=== PATIENT | female | born 1970 | race Two or more races ===

== ENCOUNTER → 2024-09-27 | Outpatient (CLI) | payer BC, SELFPAY ==
[2024-09-27 09:13] LABS: Collection Type, Urine Clean Catch
[2024-09-27 09:42] LABS: Basophils # (Auto) 0.1 Thou/mm3 (0.0-0.2); Basophils % (Auto) 1 % (0-2.5); Eosinophils # (Auto) 0.5 Thou/mm3 (0.0-0.5); Eosinophils % (Auto) 8 % (0-10); Hematocrit 39.7 % (36.0-46.0); Hemoglobin 13.7 g/dL (12.0-16.0); Immature Granulocytes % (Auto) 0 % (0-0); Immature Granulocytes Auto 0.02 Thou/mm3 (0.00-0.00); Lymphocytes # (Auto) 2.3 Thou/mm3 (1.0-4.8); Lymphocytes % (Auto) 37 % (10-50); Mean Corpuscular HGB Conc 34.5 g/dl (31.0-37.0); Mean Corpuscular Hemoglobin 30.5 pg (25.0-35.0); Mean Corpuscular Volume 88 fL (80-100); Monocytes # (Auto) 0.5 Thou/mm3 (0.0-0.8); Monocytes % (Auto) 8 % (0-12); Neutrophils # (Auto) 2.8 Thou/mm3 (1.8-7.7); Neutrophils % (Auto) 46 % (37-80); Nucleated Red Blood Cell % 0 /100 WBC (0); Platelet Count 344 Thou/mm3 (140-440); RDW Standard Deviation 39.3 fL (36.4-46.3); Red Blood Count 4.49 Miln/mm3 (4.00-5.20); White Blood Count 6.2 Thou/mm3 (3.6-11.0)
[2024-09-27 09:43] LABS: Bilirubin,Urine Negative (Negative); Blood,Urine Negative (Negative); Clarity,Urine Clear (Clear/Hazy); Color,Urine Yellow (Lt Yel-Yel); Culture Indicated,Urine Not Indicated; Glucose, Urine Negative (Negative); Hyaline Casts,Urine < 1 /hpf (0-1); Ketones,Urine Negative (Negative); Leukocyte Esterase,Urine Negative (Negative); Nitrite,Urine Negative (Negative); Protein,Urine Trace (Neg - Trace); RBC,Urine 2 /hpf (0-3); Squamous Epithelial Cell,Urine 1 /hpf (0-5); Urobilinogen,Urine Negative mg/dL (0.0-1.0); WBC,Urine 1 /hpf (0-5)
[2024-09-27 09:51] LABS: Glucose Estimated Average 114 mg/dL (80-131); Hemoglobin A1C 5.6 % Hgb (4.8-6.0)
[2024-09-27 10:03] LABS: Total Iron Binding Capacity 339 mcg/dL (250-425)
[2024-09-27 10:09] LABS: Alanine Aminotransferase 24 U/L (10-49); Albumin, Serum 4.8 gm/dL (3.5-5.0); Albumin/Globulin Ratio 2.1 (1.2-2.2); Alkaline Phosphatase 88 U/L (46-116); Anion Gap 6 (7-16); Aspartate Amino Transferase 13 U/L (0-34); BUN/Creatinine Ratio 20 Ratio (12-20); Bilirubin,Total 0.5 mg/dL (0.3-1.2); Blood Urea Nitrogen 14 mg/dL (9-23); Calcium 10.3 mg/dL (8.3-10.6); Calcium (Corrected) 10.3 mg/dL (8.5-10.1); Carbon Dioxide 30.2 mMol/L (20.0-31.0); Cardiac Risk Estimate 3.2 RATIO (3.7-5.6); Chloride 105 mMol/L (98-107); Cholesterol 211 mg/dL (132-200); Creatinine (Component) 0.7 mg/dL (0.6-1.3); Free T4 (Free Thyroxine) 1.09 ng/dL (0.89-1.76); Globulin 2.3 gm/dL (2.3-3.5); Glucose 101 mg/dL (74-106); HDL Cholesterol 66 mg/dL (40-60); LDL Cholesterol,Calculated 117 mg/dL (0-130); Osmolality,Calculated 281 (275-295); Sodium 141 mMol/L (136-145); Thyroid Stimulating Hormone 4.36 uIU/mL (0.55-4.78); Total Protein 7.1 gm/dL (5.7-8.2); Triglycerides 141 mg/dL (30-150); eGFR > 60 See Note
[2024-09-27 10:20] LABS: Iron 92 mcg/dL (50-170); Percent Iron Saturation 27 % (20-55); Unsaturated Iron Binding 247 (225-295)
[2024-09-28 18:54] LABS: Vitamin B12 354 pg/mL (211-911)
== END | disposition home or self-care (01) ==
LOC: COPL 08:26
PROVIDERS: PCP Family Medicine; Referring Provider Registered Nurse; Visit Provider Registered Nurse
DX: R79.89 Other specified abnormal findings of blood chemistry (principal); Z98.84 Bariatric surgery status; I10 Essential (primary) hypertension; E78.2 Mixed hyperlipidemia; E03.9 Hypothyroidism, unspecified
CPT/HCPCS: 36415; 80053; 80061; 81001; 82306; 82607; 83036; 83540; 83550; 84439; 84443; 85025

== ENCOUNTER → 2025-01-16 | Outpatient (CLI) | payer BC, SELFPAY ==
--- NOTE | 2025-01-16 16:30 | XR_ITS ---
Examination: Bilateral hands, 3 views. Technique: AP, Oblique, Lateral each hand total 6 views Date and time of exam: 2024, 1646 hours INDICATIONS: Bilateral hand and wrist pain beginning 2 months ago. FINDINGS: Mild juxta-articular bone demineralization. No fracture or dislocation involving either hand. No erosive or other significant arthritic change involving either hand. No cortical bone destruction No foreign bodies IMPRESSION: No fracture or dislocation. No erosive or other significant arthritic change involving either hand
--- NOTE | 2025-01-16 16:30 | XR_ITS ---
Examination: Bilateral wrists 4 views TECHNIQUE: AP lateral right and left wrist total 4 views Date and time: January 16, 2025 1703 hours INDICATIONS: Bilateral wrist pain 2 months. FINDINGS: Adequate bone density. No fracture or dislocation involving either wrist. No erosive or other significant arthritic change involving either wrist. No avascular necrosis No opaque foreign bodies IMPRESSION: No erosive or other significant arthritic change involving either wrist
== END | disposition home or self-care (01) ==
PROVIDERS: PCP Registered Nurse; Referring Provider Registered Nurse; Visit Provider Registered Nurse
DX: M25.531 Pain in right wrist (principal); M25.532 Pain in left wrist; M79.641 Pain in right hand; M79.642 Pain in left hand
CPT/HCPCS: 73100; 73130

== ENCOUNTER → 2025-04-22 | Outpatient (CLI) | payer BC, SELFPAY ==
--- NOTE | 2025-04-22 07:30 | XR_ITS ---
Examination: MRI lumbar spine without contrast Date and time of exam: April 22, 2025 0732 hours Comparison January 20, 2005 INDICATIONS: Low back pain 30 years, worse the last 6 months, radiating to the groin regions Technique: Multiple MRI axial and sagittal sections lumbar spine. Sagittal T2-weighted images, TR 3500, TE 118 T1 weighted transverse sections, TR 688 T8.5, T2-weighted sagittal sections T1 weighted sagittal sections TR 621, TE 30 T2 axial sections, TR 4, 190, TE 84. Findings: Adequate alignment lumbar vertebral bodies Moderate disc narrowing L5-S1 Normal marrow signal. Diffuse lumbar disc desiccation. L5-S1 extruded central disc, 7 mm L4-L5 6 mm central lumbar disc bulge L3-L4 2 mm central lumbar disc bulge L2-L3 2 mm central lumbar disc bulge L1-L2 no disc protrusion IMPRESSION: L5-S1 7 mm extruded central disc L4-L5 6 mm central lumbar disc bulge
== END | disposition home or self-care (01) ==
LOC: SMRI 07:15
PROVIDERS: PCP Physician Assistant; Referring Provider Physician Assistant; Visit Provider Physician Assistant
DX: M51.27 Other intervertebral disc displacement, lumbosacral region (principal); M51.360 Other intervertebral disc degeneration, lumbar region with discogenic back pain only
CPT/HCPCS: 72148